=== PATIENT | female | born 2005 | race Caucasian/White ===

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

== ENCOUNTER 2023-03-24 06:39 | Day surgery (SDC) | payer BC, MEDICAID ==
[2023-03-24] MEDS ORDERED: Lactated Ringers 1,000 ML IV SCH (07:15)
[2023-03-24] MEDS ORDERED: Midazolam 1 MG/ML 2 ML SDV ONE (07:25)
[2023-03-24] MEDS ORDERED: fentaNYL 100 MCG/2 ML SDV ONE (07:25)
[2023-03-24] MEDS ORDERED: Propofol 200 MG/20 ML SDV ONE (07:25)
[2023-03-24 09:31] VITALS: BP 121/82; PULSE 88
== END 2023-03-24 09:44 | disposition home or self-care (01) ==
LOC: JP.SDS 06:39
PROVIDERS: ATTEND Student in an Organized Health Care Education/Training Program
DX: K21.00 Gastro-esophageal reflux disease with esophagitis, without bleeding (principal); K29.50 Unspecified chronic gastritis without bleeding; K44.9 Diaphragmatic hernia without obstruction or gangrene; K22.89 Other specified disease of esophagus; K22.70 Barrett's esophagus without dysplasia; F43.10 Post-traumatic stress disorder, unspecified; F41.9 Anxiety disorder, unspecified; F32.A Depression, unspecified; Z86.711 Personal history of pulmonary embolism
CPT/HCPCS: 36415; 43239; 84703; 88305; 88342; J2250; J2704; J3010; J7120

== ENCOUNTER 2023-08-13 07:39 | Day surgery (SDC) | payer OTHER, BC ==
[2023-08-13] MEDS: Sodium Chloride 0.9% 1,000 ML IV SCH (08:30)
[2023-08-13] MEDS ORDERED: fentaNYL 50 MCG/ML SDV ONE (08:37)
[2023-08-13] MEDS ORDERED: Midazolam 1 MG/ML 2 ML SDV ONE (08:37)
[2023-08-13] MEDS ORDERED: Propofol 200 MG/20 ML SDV ONE (08:37)
[2023-08-13 10:37] VITALS: BP 120/78; PULSE 82
== END 2023-08-13 10:40 | disposition home or self-care (01) ==
LOC: JP.SDS 07:39
PROVIDERS: ATTEND Surgery
DX: D64.9 Anemia, unspecified (principal); F43.10 Post-traumatic stress disorder, unspecified
CPT/HCPCS: 45378; J2250; J2704; J3010; J7030

== ENCOUNTER 2024-09-22 15:40 | Emergency (ER) | payer BC ==
[2024-09-22 17:40] LABS: BASOPHILS ABSOLUTE AUTO 0.04 K/uL (0.00-0.10); BASOPHILS PERCENT AUTO 0.7 % (0.1-1.3); EOSINOPHILS PERCENT AUTO 0.3 % (0.0-5.4); HEMOGLOBIN 14.5 g/dL (11.2-15.5); IMMATURE GRAN PERCENT AUTO 0.2 % (0.0-0.7); LYMPHOCYTES ABSOLUTE AUTO 2.23 K/uL (0.8-3.3); LYMPHOCYTES PERCENT AUTO 37.6 % (11.4-47.7); MEAN CORPUSCULAR HGB CONC 35.4 g/dL (31.6-35.5); MEAN CORPUSCULAR VOLUME 87.6 fL (81.4-99.0); MONOCYTES ABSOLUTE AUTO 0.69 K/uL (0.20-0.90); MONOCYTES PERCENT AUTO 11.6 % (3.3-12.6); NEUTROPHILS ABSOLUTE AUTO 2.94 K/uL (1.0-7.6); NEUTROPHILS PERCENT AUTO 49.6 % (40.0-78.1); PLATELET COUNT,PLT 257 K/uL (130-375); RED BLOOD CELL COUNT 4.68 M/uL (3.77-5.24); WHITE BLOOD CELL COUNT,WBC 5.9 K/uL (3.2-11.0)
[2024-09-22 17:44] LABS: EOSINOPHILS ABSOLUTE AUTO 0.02 K/uL (0.00-0.40); IMMATURE GRAN ABSOLUTE AUTO 0.01 K/uL (0.00-0.23)
[2024-09-22 18:03] LABS: ANION GAP 16.3 mmol/L (5.0-14.0); BLOOD UREA NITROGEN,BUN 8 mg/dL (7-18); CALCIUM 9.4 mg/dL (8.5-10.1); CARBON DIOXIDE,CO2 24 mmol/L (21-32); CHLORIDE,CL 105 mmol/L (100-108); CREATININE 0.8 mg/dL (0.6-1.0); EST CRCL DRUG DOSING (CG) 96.06 mL/min; ESTIMATED GFR 107 mL/min (>60); GLUCOSE RANDOM 81 mg/dL (74-106); POTASSIUM,K 3.3 mmol/L (3.6-5.2); SODIUM,NA 142 mmol/L (140-148); TROPONIN I HIGH SENSITIVITY < 4.0 pg/mL (<=60.3)
[2024-09-22 18:27] VITALS: BP 127/74; PULSE 104
== END 2024-09-22 19:05 | disposition home or self-care (01) ==
LOC: JP.ED 15:40
DX: J06.9 Acute upper respiratory infection, unspecified (principal); E87.6 Hypokalemia; E66.9 Obesity, unspecified; Z68.28 Body mass index [BMI] 28.0-28.9, adult; Z90.49 Acquired absence of other specified parts of digestive tract; Z79.01 Long term (current) use of anticoagulants; Z79.51 Long term (current) use of inhaled steroids; Z79.899 Other long term (current) drug therapy
CPT/HCPCS: 36415; 71046; 71046-26; 80048; 84484; 85025; 85379; 87428-QW; 93005; 93010; 99284; 99285

== ENCOUNTER 2025-05-14 06:16 | Day surgery (SDC) | payer BC ==
[2025-05-14 06:39] LABS: PLATELET COUNT,PLT 248.0 K/uL (130-375); RED BLOOD CELL COUNT 4.47 M/uL (3.77-5.24); WHITE BLOOD CELL COUNT,WBC 8.1 K/uL (3.2-11.0)
[2025-05-14 06:55] LABS: BLOOD UREA NITROGEN,BUN 13.0 mg/dL (7-18); CARBON DIOXIDE,CO2 29.0 mmol/L (21-32); CHLORIDE,CL 104.0 mmol/L (100-108); CREATININE 0.8 mg/dL (0.6-1.0); EST CRCL DRUG DOSING (CG) 95.25 mL/min; ESTIMATED GFR 107.0 mL/min (>60); GLUCOSE RANDOM 97.0 mg/dL (74-106); POTASSIUM,K 3.3 mmol/L (3.6-5.2); SODIUM,NA 141.0 mmol/L (140-148)
[2025-05-14] MEDS: Nozin Nasal Sanitizer NASBOTH ONE (06:59)
[2025-05-14] MEDS ORDERED: Ondansetron 4 MG/2 ML SDV ONE (07:14)
[2025-05-14] MEDS ORDERED: Dexamethasone 4 MG/ML SDV ONE (07:14)
[2025-05-14] MEDS ORDERED: fentaNYL 250 MCG/5 ML SDV ONE (07:14)
[2025-05-14] MEDS ORDERED: Propofol 200 MG/20 ML SDV ONE (07:14)
[2025-05-14] MEDS: Lactated Ringers 1,000 ML IV SCH (07:16)
[2025-05-14 10:26] VITALS: BP 136/88; PULSE 86
== END 2025-05-14 10:40 | disposition home or self-care (01) ==
LOC: JP.SDS 06:16
PROVIDERS: ATTEND Specialist
DX: M94.262 Chondromalacia, left knee (principal); M25.862 Other specified joint disorders, left knee; K21.9 Gastro-esophageal reflux disease without esophagitis; F41.9 Anxiety disorder, unspecified; F32.A Depression, unspecified; J45.909 Unspecified asthma, uncomplicated; Z79.01 Long term (current) use of anticoagulants; Z88.6 Allergy status to analgesic agent; Z79.899 Other long term (current) drug therapy
CPT/HCPCS: 29877; 36415; 80048; 84703; 85027; A9270; J0665; J0690; J1100; J2405; J2704; J3010; J7120